=== PATIENT | female | born 1955 | race African-American/Black ===

== ENCOUNTER 2017-09-10 01:24 | Emergency (ER) | payer OTHER ==
[~2017-09-10] VITALS: Ht 167.6 cm; Wt 74.0 kg
[2017-09-10 02:35] VITALS: BP 129/74
== END 2017-09-10 03:05 | disposition home or self-care (01) ==
LOC: ER 01:24
DX: H66.91 Otitis media, unspecified, right ear (principal); F17.200 Nicotine dependence, unspecified, uncomplicated; Z98.84 Bariatric surgery status
CPT/HCPCS: 99283

== ENCOUNTER 2019-03-28 04:12 | Emergency (ER) | payer OTHER ==
[~2019-03-28] VITALS: Ht 170.2 cm; Wt 74.0 kg
[2019-03-28 05:27] LABS: BASOPHILS % 0.8 % (0.0-2.0); EOSINOPHILS % 2.1 % (0.0-5.0); HEMATOCRIT. 37.4 % (36.0-48.0); HEMOGLOBIN. 12.4 g/dL (12.0-16.0); LYMPHOCYTES % 11.5 % (20.0-50.0); MEAN CORPUSCULAR HEMOGLOBIN 29.9 pg (28.0-32.0); MEAN CORPUSCULAR VOLUME 89.9 fL (81.0-99.0); MEAN PLATELET VOLUME 9.5 fl (7.4-10.4); MONOCYTES % 7.2 % (2.0-8.0); NEUTROPHILS % 78.4 % (40.0-76.0); PLATELET 248 x1000/uL (130-400); RED BLOOD CELL COUNT 4.15 mill/uL (4.2-5.4); RED CELL DISTRIBUTION WIDTH 12.9 % (11.6-14.6)
[2019-03-28 05:37] LABS: CHLORIDE 106 mEq/L (98-107)
[2019-03-28 06:50] VITALS: BP 126/66
== END 2019-03-28 06:53 | disposition home or self-care (01) ==
LOC: ER 04:12
DX: R05 Cough (principal); I10 Essential (primary) hypertension; Z87.891 Personal history of nicotine dependence; Z98.890 Other specified postprocedural states
CPT/HCPCS: 36415; 71045; 80053; 83880; 84484; 85025; 93005; 99284; Z7610

== ENCOUNTER 2019-04-21 07:51 | Emergency (ER) | payer OTHER ==
[~2019-04-21] VITALS: Ht 170.2 cm; Wt 74.0 kg
[2019-04-21] MEDS ORDERED: IBUPROFEN 600MG TABLET PO STA (08:46)
[2019-04-21 08:59] VITALS: BP 118/68
[2019-04-21 08:59] LABS: BASOPHILS % 1.3 % (0.0-2.0); EOSINOPHILS % 1.3 % (0.0-5.0); HEMATOCRIT. 36.4 % (36.0-48.0); LYMPHOCYTES % 20.5 % (20.0-50.0); MEAN CORPUSCULAR HEMOGLOBIN 29.9 pg (28.0-32.0); MEAN CORPUSCULAR VOLUME 90.3 fL (81.0-99.0); MEAN PLATELET VOLUME 9.5 fl (7.4-10.4); MONOCYTES % 8.4 % (2.0-8.0); NEUTROPHILS % 68.5 % (40.0-76.0); PLATELET 270 x1000/uL (130-400); RED BLOOD CELL COUNT 4.03 mill/uL (4.2-5.4)
[2019-04-21 09:10] LABS: CHLORIDE 104 mEq/L (98-107)
== END 2019-04-21 10:30 | disposition home or self-care (01) ==
LOC: ER 07:51
DX: R51 Headache (principal); R53.1 Weakness; E11.9 Type 2 diabetes mellitus without complications; I10 Essential (primary) hypertension; Z87.891 Personal history of nicotine dependence
CPT/HCPCS: 36415; 93005; 99284

== ENCOUNTER 2019-07-11 02:25 | Emergency (ER) | payer OTHER ==
[~2019-07-11] VITALS: Ht 170.2 cm; Wt 74.0 kg
[2019-07-11 02:52] VITALS: BP 115/63
== END 2019-07-11 04:09 | disposition left against medical advice (07) ==
LOC: ER 03:40
DX: R51 Headache (principal); Z53.21 Procedure and treatment not carried out due to patient leaving prior to being seen by health care provider

== ENCOUNTER 2019-07-13 02:19 | Emergency (ER) | payer OTHER ==
[~2019-07-13] VITALS: Ht 170.2 cm; Wt 74.0 kg
[2019-07-13] MEDS ORDERED: DIPHENHYDRAMINE 25MG CAPSULE PO ONE (04:00)
[2019-07-13] MEDS ORDERED: PROCHLORPERAZINE MALEATE 10MG TABLET PO ONE (04:00)
[2019-07-13] MEDS ORDERED: DEXAMETHASONE 4MG TABLET PO ONE (04:00)
[2019-07-13] MEDS ORDERED: KETOROLAC 60MG/2ML VIAL IM ONE (04:00)
[2019-07-13 04:33] VITALS: BP 119/71
[2019-07-13 04:36] LABS: HEMATOCRIT 38.9 % (36.0-48.0); HEMOGLOBIN 13.1 g/dL (12.0-16.0); MEAN CORPUSCULAR HEMOGLOBIN 29.8 pg (28.0-32.0); MEAN CORPUSCULAR VOLUME 88.5 fL (81.0-99.0); PLATELET 280 x1000/uL (130-400); RED BLOOD CELL COUNT 4.39 mill/uL (4.2-5.4); RED CELL DISTRIBUTION WIDTH 13.5 % (11.6-14.6)
[2019-07-13 04:44] LABS: CHLORIDE 96 mEq/L (98-107)
[2019-07-13 04:48] LABS: ETHANOL BLOOD < 10 mg/dL
[2019-07-13] MEDS ORDERED: POTASSIUM CHLORIDE 20MEQ TABLET SR PO NR (05:30)
== END 2019-07-13 06:33 | disposition home or self-care (01) ==
LOC: ER 02:54
DX: M54.9 Dorsalgia, unspecified (principal); R07.9 Chest pain, unspecified; R51 Headache; E87.6 Hypokalemia; I10 Essential (primary) hypertension; Z98.84 Bariatric surgery status; Z98.890 Other specified postprocedural states
CPT/HCPCS: 36415; 70450; 80053; 80307; 80320; 85027; 93005; 96372; 99285; J1885; J8540; Q0163; Q0164; G0480

== ENCOUNTER 2021-05-22 15:54 | Emergency (ER) | payer OTHER ==
[~2021-05-22] VITALS: Ht 170.2 cm; Wt 78.0 kg
[2021-05-22] MEDS ORDERED: HYDROCODONE/ACETAMINOPHEN 5/325MG TABLET PO ONE (21:30)
[2021-05-22 22:04] LABS: BASOPHILS % 1.2 % (0.0-2.0); EOSINOPHILS % 3.8 % (0.0-5.0); HEMATOCRIT. 37.2 % (36.0-48.0); HEMOGLOBIN. 12.4 g/dL (12.0-16.0); LYMPHOCYTES % 22.7 % (20.0-50.0); MEAN CORPUSCULAR HEMOGLOBIN 31.4 pg (28.0-32.0); MEAN CORPUSCULAR VOLUME 93.9 fL (81.0-99.0); MEAN PLATELET VOLUME 8.9 fl (7.4-10.4); MONOCYTES % 8.8 % (2.0-8.0); NEUTROPHILS % 63.5 % (40.0-76.0); PLATELET 358 x1000/uL (130-400); RED BLOOD CELL COUNT 3.96 mill/uL (4.2-5.4); RED CELL DISTRIBUTION WIDTH 14.1 % (11.6-14.6)
[2021-05-22 22:04] LABS: CLARITY URINE CLEAR (CLEAR); COLOR URINE YELLOW (YELLOW); KETONES URINE NEGATIVE (NEGATIVE); LEUKOCYTE ESTERASE URINE 1+ (NEGATIVE); NITRITE URINE NEGATIVE (NEGATIVE); OCCULT BLOOD URINE TRACE (NEGATIVE); PROTEIN URINE NEGATIVE (NEGATIVE); SPECIFIC GRAVITY URINE 1.028 (1.005-1.030)
[2021-05-22 22:11] LABS: CHLORIDE 108 mEq/L (98-107)
[2021-05-22] MEDS ORDERED: POTASSIUM CHLORIDE 20MEQ TABLET SR PO SCH (22:30)
[2021-05-22] MEDS ORDERED: IOHEXOL-300 100 ML BOTTLE ONE (23:21)
[2021-05-23 10:00] VITALS: BP 144/82
== END 2021-05-23 10:10 | disposition left against medical advice (07) ==
LOC: ER 15:54 → ENRESERV 05-23 09:19 → CANRESERV 05-23 09:19 → CANBEDREQ 05-23 10:06 → ER 05-23 10:10
DX: R10.84 Generalized abdominal pain (principal); I10 Essential (primary) hypertension; Z98.890 Other specified postprocedural states; Z20.822 Contact with and (suspected) exposure to COVID-19
CPT/HCPCS: 36415; 74177; 80053; 81003; 83690; 85025; 87426; 99285; Q9967

== ENCOUNTER 2024-05-14 02:06 | Emergency (ER) | payer OTHER, BC ==
[~2024-05-14] VITALS: Ht 167.6 cm; Wt 79.5 kg
[2024-05-14 02:13] VITALS: TEMP 98.7; O2SAT 100
[2024-05-14] MEDS ORDERED: IBUP-2029 MT (06:21)
[2024-05-14 06:51] VITALS: BP 125/77
[2024-05-14] MEDS: OXYCODONE HCL/ACETAMINOPHEN 5/325MG TABLET PO NR (06:51)
[2024-05-14 06:59] VITALS: PULSE 76; RESP 14; O2SAT 100
== END 2024-05-14 07:03 | disposition home or self-care (01) ==
LOC: ER 02:06
DX: S42.251A Displaced fracture of greater tuberosity of right humerus, initial encounter for closed fracture (principal); I10 Essential (primary) hypertension; Z98.890 Other specified postprocedural states; W10.9XXA Fall (on) (from) unspecified stairs and steps, initial encounter; Y93.89 Activity, other specified; Y92.89 Other specified places as the place of occurrence of the external cause; Y99.8 Other external cause status
CPT/HCPCS: 73030; 73060; 99284; A4565